=== PATIENT | male | born 1990 | race Caucasian/White ===

== ENCOUNTER 2025-02-10 17:26 | Emergency (ER) | payer BC, SELFPAY ==
--- OUTSIDE RECORDS SUMMARY | 2025-02-10 17:28 | XMS_ITS | Clinical Summary ---
Author Organization [email or web address] [facility] Address [address] [place] [id number] Care Team Providers Care Job Press Feeder Name Role Phone Clinic, No Pcp Or Primary Care Provider Unavaila ble Allergies No known active allergies Medications No known medications Active Problems No known active problems Immunizations Immunization Administration Dates Next Due Hepatitis B (Peds) 07/28/2000,03/23/2000, 000 MMR 07/28/2000 Td (Age >=7 Years) 10/17/2002 Family History Medical History Relation Name Comments Good Health Father Good Health Mother Other Sister allergies Relation Name Status Comments Father Mother Sister Social History Tobacco Use Types Packs/Day Years Used Date Smoking Tobacco: Never Smokeless Tobacco: Never Tobacco Cessation:Counseling Given: Yes Alcohol Use Standard Drinks/Week Comments Yes 10 (1 standard drink = 0.6 oz pu re alcohol) on weekend. 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 Not on file Not on file Obstetrics History Last Filed Vital Signs Vital Sign Reading Time Taken Comments Blood Pressure 128/76 01/03/2018 2:16 PM CDT Pulse 52 01/03/2018 2:16 PM CDT Temperature 36.8 C (98.2 F) 01/03/2018 2:16 PM CDT Respiratory Rate 16 2015 10:23 AM CDT Oxygen Saturation 97% 01/03/2018 2:16 PM CDT Inhaled Oxygen Concentration - - Weight 91.7 kg (202 lb 3.2 oz) 01/03/2018 2:16 P M CDT Height 181 cm (5' 11.26) 01/03/2018 2:16 PM CDT Body Mass Index 28 01/03/2018 2:16 PM CDT Plan of Treatment Health Maintenance Due Date Last Done Comments Hepatitis C screening for ag e 18-79 2006 Tetanus booster 10/17/2012 10/17/2002 HPV series for age 9-45 (1 - 3-dose SCDM series) 07/23/2015 BMI (ht and wt on same day) for age 18+ 01/03/2019 01/03/2018 Depression screening for age 12+ 01/04/2019 01/04/2018, 01/03/2018 Lipids for age 35-44 07/23/2023 Influenza Vaccine (#1) 2024 RSV vaccine for adults or (1 - 1-dose 75+ series) 07/23/2063 Hepatitis B series for 19+ Completed 07/28, 03/23/2000, 02/10/2000 HIV for age 15-65 Completed 01/03/2018, 03/12/2015 Pneumococcal series for age 6-49 Aged Out No longer eligible b ased on patient's age to complete this topic Procedures Procedure Name Priority Date/Time Associated Diagnosis Comments ANTI HIV 1/2 Routine 01/03/2018 2:57 PM CDT Routine screening for STI (sexually transmitted infection) from Last 3 Months or Most Recently Relevant to Health Maintenance Results * ANTI HIV 1/2 (01/03/2018 2:57 PM CDT) HIV-1/HIV-2 ANTIBODY Non-Reacti ve Non-Reacti ve 01/03/2018 8:06 PM CDT [facility] Comment:HIV-1 p24 and HIV-1/ HIV-2 Ab not detected. Blood BLOOD SPECIMEN / Unknown Venipuncture / Unknown 01/03/2018 2:57 PM CDT 01/03/2018 2:57 PM CDT Inés PINEDA SEND OUTS Final Result [facility] [address] [place] [address], from Last 3 Months or Most Recently Relevant to Health Maintenance [place] [address] [address] [place] [address] Care Teams Job Press Feeder Relationship Specialty Start Date End Date Clinic, No Pcp Or . PCP - General 07/22/15
[2025-02-10 17:33] VITALS: BP 145/73; PULSE 76; RESP 18; TEMP 36.1; O2SAT 97; BMI 29.2
--- NOTE | 2025-02-10 17:36 | CRLHL7_ITS ---
For Patients: As a result of the Century Cures Act, medical imaging exams and procedure reports are released immediately into your electronic medical record. You may view this report before your referring provider. If you have questions, please contact your health care provider. Indication: Trauma. Technique: Left ankle, 3 views. Comparison: None. Findings/Impression: Bones: Acute mildly displaced distal fibular diaphyseal fracture. Additional acute mildly displaced medial/posterior malleolar fracture. Joint spaces: Associated joint effusion. Soft tissues: Associated soft tissue swelling. Dictated by Sam Morrell MD @ 02/10/2025 6:37:42 PM (Electronically Signed)
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
[2025-02-10 19:48] VITALS: BP 127/79; PULSE 64; RESP 16
== END 2025-02-10 19:15 | disposition home or self-care (01) ==
PROVIDERS: Emergency Provider Student in an Organized Health Care Education/Training Program
DX: S82.92XA Unspecified fracture of left lower leg, initial encounter for closed fracture (principal); V86.56XA Driver of dirt bike or motor/cross bike injured in nontraffic accident, initial encounter
CPT/HCPCS: 73610; 99283; 99284; 99285; A9270

== ENCOUNTER 2025-02-14 15:32 | Outpatient (CLI) | payer BC, SELFPAY ==
--- NOTE | 2025-02-14 16:00 | CRLHL7_ITS ---
For Patients: As a result of the Century Cures Act, medical imaging exams and procedure reports are released immediately into your electronic medical record. You may view this report before your referring provider. If you have questions, please contact your health care provider. Indication: LT ANKLE FRACTURE Technique: Noncontrast CT left ankle. Please note that all CT scans at this facility use dose modulation, iterative reconstruction, and/or weight-based dosing when appropriate to reduce radiation dose to as low as reasonably achievable. Comparison: X-rays 02/10/2025 Findings: There is a coronally oriented displaced intra-articular fracture with associated comminution involving the posterior malleolus. Up to 3.8 millimeters of articular-surface diastasis noted at the posterior tibiotalar joint along with approximally 1.5 millimeters of impaction of the posterior fracture fragment. The largest posterior fracture fragment measures up to 2.7 cm. A displaced transversely oriented fracture involving the base of the medial malleolus noted. Up to 4 millimeters of diastasis is present. The displaced fracture fragment measures 1.9 cm. Multiple small adjacent bone fragments are present. The largest ossicle remains in good association with the talus. Finally, there is a comminuted and displaced fracture involving the mid fibular diaphysis with near anatomic alignment. Mild chronic changes at the tip of the lateral malleolus noted. Soft tissue swelling. Impression: Displaced and comminuted fractures of the medial malleolus and posterior malleolus along with the mid fibular diaphysis. Please note that all CT scans at this facility use dose modulation, iterative reconstruction, and/or weight-based dosing when appropriate to reduce radiation dose to as low as reasonably achievable. Dictated by Andrew Joy MD @ 02/15/2025 8:42:16 AM (Electronically Signed)
== END 2025-02-14 15:33 | disposition home or self-care (01) ==
LOC: CT 15:34
PROVIDERS: Visit Provider Orthopaedic Surgery
DX: S82.52XA Displaced fracture of medial malleolus of left tibia, initial encounter for closed fracture (principal); S82.62XA Displaced fracture of lateral malleolus of left fibula, initial encounter for closed fracture
CPT/HCPCS: 73700

== ENCOUNTER 2025-02-15 10:18 | Day surgery (SDC) | payer BC, SELFPAY ==
[2025-02-15] VITALS (17 sets, daily range): BP systolic 136–164; BP diastolic 9–100; PULSE 60–85; RESP 12–21; TEMP 36.1–36.9; O2SAT 88–99; BMI 29.1
[2025-02-15] MEDS: LACTATED RINGERS 1000 ML 1,000 ML 100 ML IV ×2 (11:02→16:21)
[2025-02-15] MEDS: SODIUM CHLORIDE 0.9 % (FLUSH) 10 ML SYRINGE IVF (11:02)
--- NOTE | 2025-02-15 11:45 | CRLHL7_ITS ---
For Patients: As a result of the Century Cures Act, medical imaging exams and procedure reports are released immediately into your electronic medical record. You may view this report before your referring provider. If you have questions, please contact your health care provider. INDICATION: Left ankle open reduction internal fixation TECHNIQUE: Intraoperative C-arm fluoroscopy. IMPRESSION: Intraoperative C-arm fluoroscopy was provided. Fluoroscopy time 112 seconds. Eight images were captured. Dictated by Godwin Peter MD @ 02/17/2025 9:00:17 AM (Electronically Signed)
--- NOTE | 2025-02-15 12:35 | SUR.PREOP ---
TIME?OUT:?1237 PT/RN/MDA?VERIFICATION?OF?SURGICAL?SITE-LEFT ANKLE,?PROCEDURE, NERVE BLOCK?AND?CONSENT OBTAINED?PRIOR?TO?INVASIVE?PROCEDURE.
[2025-02-15] MEDS: MIDAZOLAM HCL 1 MG/ML inj IVP (12:39)
--- NOTE | 2025-02-15 12:58 | W.PM.NB ---
Nerve Block Nerve Block Time Seen by Provider: 12:40 Date Seen: 02/15/25 Type of block requested by surgeon for post-operative analgesia: popliteal Side: left Time out performed: Yes Verification of patient name: Yes Verification of date of : Yes Site marking: site marked Name of person performing procedure: Alban Continuous monitoring Was continuous monitoring of O2 sat, B/P, cardiac cath lab manager, recorded every 15 minutes?: Yes Procedure Checklist: sterile prep, needles and gloves Ultrasound guided. Images saved: Yes Medications given in 5ml increments after negative aspiration: Marcaine %: 0.25 mL: 15 Needle gauge: 20 and Exparel mL: 5 Patient tolerated procedure well: Yes Additional comments: Needle noted adjacent to nerve Block Charges Block Charge (with Pro Fee): Sciatic Nerve Use of Ultrasound Machine for Block: Yes- US Guidance/pain block
--- NOTE | 2025-02-15 12:59 | P.ANES_ITS ---
Anesthesia Charges Start Date/Time Anesthesia Start Date: 02/15/25 Anesthesia Start Time: 13:00 Stop Date/Time Anesthesia Stop Date: 02/15/25 Coding CPT Codes CPT Codes: ANESTH LOWER LEG BONE SURG - 04980 ([id number]) P1 - NORMAL HEALTHY PATIENT, QK - IN FLIGHT REFUELING CRAFTSMAN 2-4 CNCRNT ANES PROC, QX - PAROLE DIRECTOR SVTimothy W/ MD MED DIRECTION
--- NOTE | 2025-02-15 12:59 | W.PM.NB ---
Nerve Block Nerve Block Time Seen by Provider: 12:40 Date Seen: 02/15/25 Type of block requested by surgeon for post-operative analgesia: adductor canal Side: left Time out performed: Yes Verification of patient name: Yes Verification of date of : Yes Site marking: site marked Name of person performing procedure: Alban Continuous monitoring Was continuous monitoring of O2 sat, B/P, nuclear monitoring technician, recorded every 15 minutes?: Yes Procedure Checklist: sterile prep, needles and gloves Ultrasound guided. Images saved: Yes Medications given in 5ml increments after negative aspiration: Marcaine %: 0.25 mL: 15 Needle gauge: 20 and Exparel mL: 5 Patient tolerated procedure well: Yes Additional comments: Needle noted adjacent to nerve Block Charges Block Charge (with Pro Fee): Femoral Nerve Use of Ultrasound Machine for Block: Yes- US Guidance/pain block
--- NOTE | 2025-02-15 12:59 | W.ANESCHARGE ---
Anesthesia Charges Start Date/Time Anesthesia Start Date: 02/15/25 Anesthesia Start Time: 13:00 Stop Date/Time Anesthesia Stop Date: 02/15/25 Coding CPT Codes CPT Codes: ANESTH LOWER LEG BONE SURG - 25762 ([id number]) P1 - NORMAL HEALTHY PATIENT, QK - CANCER REGISTRY COORDINATOR 2-4 CNCRNT ANES PROC, QX - GROUP ART SUPERVISOR SVTimothy W/ MD MED DIRECTION
--- NOTE | 2025-02-15 16:58 | W.PM.H&PU ---
History & Physical Update History & Physical Update H&P Reviewed and patient assessed: No changes noted
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
--- NOTE | 2025-02-15 17:22 | P.ANES_ITS ---
Anesthesia Charges Start Date/Time Anesthesia Start Date: 02/15/25 Anesthesia Start Time: 13:00 Stop Date/Time Anesthesia Stop Date: 02/15/25 Anesthesia Stop Time: 17:25 Coding CPT Codes CPT Codes: ANESTH LOWER LEG BONE SURG - 75961 ([id number]) P1 - NORMAL HEALTHY PATIENT, QK - STORE DETECTIVE 2-4 CNCRNT ANES PROC, QX - REMEDIATION PROJECT ENGINEER SVTimothy W/ MED DIRECTION
--- NOTE | 2025-02-15 17:22 | W.ANESCHARGE ---
Anesthesia Charges Start Date/Time Anesthesia Start Date: 02/15/25 Anesthesia Start Time: 13:00 Stop Date/Time Anesthesia Stop Date: 02/15/25 Anesthesia Stop Time: 17:25 Coding CPT Codes CPT Codes: ANESTH LOWER LEG BONE SURG - 43477 ([id number]) P1 - NORMAL HEALTHY PATIENT, QK - ARMHOLE FELLER HANDSTITCHING MACHINE 2-4 CNCRNT ANES PROC, QX - DECORATIVE GREENS CUTTER SVTimothy W/ MED DIRECTION
--- NOTE | 2025-02-15 17:29 | P.ANES_ITS ---
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
--- NOTE | 2025-02-15 17:29 | W.ANESCHARGE ---
Anesthesia Charges Start Date/Time Anesthesia Start Date: 02/15/25 Anesthesia Start Time: 13:00 Stop Date/Time Anesthesia Stop Date: 02/15/25 Anesthesia Stop Time: 17:25 Coding CPT Codes CPT Codes: ANESTH LOWER LEG BONE SURG - 53712 ([id number]) P1 - NORMAL HEALTHY PATIENT, QK - FENCE MAKER 2-4 CNCRNT ANES PROC, QX - STOCK ROOM MANAGER SVTimothy W/ MED DIRECTION
--- NOTE | 2025-02-15 17:48 | SUR.PHASEI ---
Patient stated pain was an 8 out of 10. Medication given and pain level reduced to a zero.
--- NOTE | 2025-02-15 17:57 | SUR.PHASEI ---
Patient meets discharge criteria from PACU
[2025-02-15] MEDS: OxyCODONE/APAP 5-325 TABLET PO (18:33)
== END 2025-02-15 20:21 | disposition home or self-care (01) ==
LOC: OR 13:12 → MEDSURG 02-18 12:26
PROVIDERS: Visit Provider Orthopaedic Surgery
PROC: (CPT 27814; principal; 2025-02-15 12:00)
DX: S82.842A Displaced bimalleolar fracture of left lower leg, initial encounter for closed fracture (principal); S93.432A Sprain of tibiofibular ligament of left ankle, initial encounter; S82.432A Displaced oblique fracture of shaft of left fibula, initial encounter for closed fracture; G89.18 Other acute postprocedural pain; V29.99XA Rider (driver) (passenger) of other motorcycle injured in unspecified traffic accident, initial encounter
CPT/HCPCS: 27814; 27829; 01480; 64445; 64447; 73600; 76000; 76942; A9270; C1713; J0330; J0665; J0666; J0690; J1100; J1885; J2250; J2405; J2704; J2710; J3010; J3475; J3490; J7120